=== PATIENT | female | born 1990 | race Caucasian/White ===

== ENCOUNTER 2020-02-21 15:09 | Emergency (ER) | payer BC ==
[~2020-02-21] VITALS: Ht 170.2 cm; Wt 68.0 kg
[2020-02-21 15:12] VITALS: BP 117/81
[2020-02-21] MEDS ORDERED: HYDR-4383 PO (15:33)
[2020-02-21] MEDS ORDERED: NAPR-56 PO (15:33)
[2020-02-21] MEDS ORDERED: PENI250T2 PO (15:33)
== END 2020-02-21 15:50 | disposition home or self-care (01) ==
LOC: ER 15:10
DX: K01.1 Impacted teeth (principal); F17.200 Nicotine dependence, unspecified, uncomplicated; Z79.899 Other long term (current) drug therapy
CPT/HCPCS: 99283

== ENCOUNTER 2020-09-22 10:33 | Emergency (ER) | payer BC, MEDICAID ==
[~2020-09-22] VITALS: Ht 170.2 cm; Wt 68.2 kg
[~2020-09-22 10:33] MED LIST: HYDR-4383 PO
[2020-09-22 11:06] LABS: CLARITY,URINE CLEAR (Clear); COLOR,URINE YELLOW (Yellow); GLUCOSE, URINE NEGATIVE (Neg); KETONES,URINE NEGATIVE (Neg); LEUKOCYTE ESTERASE ,URINE NEGATIVE (Neg); NITRITES, URINE NEGATIVE (Neg); OCCULT BLOOD,URINE SMALL (Neg); PROTEIN,URINE NEGATIVE (Neg); UROBILINOGEN,URINE 0.2 E.U/dL (0.2-1.0)
[2020-09-22 11:07] LABS: URINE HCG NEGATIVE (NEG)
[2020-09-22 11:12] LABS: UA COLLECTION TYPE CLN CATCH MIDSTREAM
[2020-09-22 11:14] LABS: BACTERIA,URINE 3+ /HPF (Neg); MUCUS STRANDS MODERATE /LPF (Neg); SQUAMOUS EPITHELIAL CELL,UR MANY /LPF (FEW); WBC,URINE 0-4 /HPF (0-4)
[2020-09-22 11:53] LABS: BASOPHILS % (AUTO) 0.6 % (0-1); MEAN CORPUSCULAR VOLUME 89.3 FL (78-98); MONOCYTES # (AUTO) 0.4 X10'3 (0-0.9); MONOCYTES % (AUTO) 8.1 % (2-12); NEUTROPHILS # (AUTO) 3.3 X10'3 (1.8-7.7); PLATELET COUNT 341 X10'3 (140-440); RED CELL DISTRIBUTION WIDTH 13.6 % (11.5-14.5); WHITE BLOOD COUNT 5.1 X10'3 (4.5-11.0)
[2020-09-22 11:55] LABS: EOSINOPHILS # (AUTO) 0.1 X10'3 (0-0.9); EOSINOPHILS % (AUTO) 1.3 % (0-6); HEMATOCRIT 45.1 % (35.0-45.0); HEMOGLOBIN 15.6 g/dl (12.0-16.0); LYMPHOCYTES # (AUTO) 1.2 X10'3 (1.1-4.8); LYMPHOCYTES % (AUTO) 24.3 % (21-51); MEAN CORPUSCULAR HEMOGLOBIN 30.8 PG (27.0-31.0); MEAN CORPUSCULAR HGB CONC 34.5 g/dL (33.0-36.5); MEAN PLATELET VOLUME 7.9 FL (7.4-10.4); NEUTROPHILS % (AUTO) 65.7 % (42-75); RED BLOOD COUNT 5.05 X10'6 (4.20-5.60)
[2020-09-22 12:06] LABS: ALANINE AMINOTRANSFERASE 29 U/L (12-78); ALBUMIN 4.3 G/DL (3.4-5.0); ALBUMIN/GLOBULIN RATIO 1.2 (1.1-1.5); ALKALINE PHOSPHATASE 52 IU/L (46-116); ANION GAP 9 (8-16); ASPARTATE AMINO TRANSFERASE 17 U/L (10-37); BILIRUBIN,TOTAL 1.6 MG/DL (0.1-1.0); BLOOD UREA NITROGEN 11 MG/DL (7-18); BUN/CREATININE RATIO 16.9 (6.6-38.0); CALCIUM 8.8 MG/DL (8.5-10.1); CHLORIDE 104 MMOL/L (99-107); CREATININE 0.65 MG/DL (0.40-0.90); GLUCOSE 94 MG/DL (70-104); LIPASE 122 U/L (73-393); POTASSIUM 3.8 MMOL/L (3.5-5.1); SODIUM 141 MMOL/L (135-145); TOTAL PROTEIN 7.8 G/DL (6.4-8.2); eGFR > 90 ML/MIN
[2020-09-22] MEDS ORDERED: ketorolac trometh. 30mg/ml inj. IV ONE (12:15)
[2020-09-22] MEDS ORDERED: HYDROmorphone inj. 0.5 MG/0.5 ML DISP.SYRIN IV PRN (12:15)
[2020-09-22] MEDS ORDERED: ondansetron/PF 4mg/2ml inj IV ONE (12:15)
[2020-09-22] MEDS ORDERED: normal saline 1000ML IV soln IVB ONE (12:15)
[2020-09-22] MEDS ORDERED: HYDROmorphone 1 mg/ml syringe IV PRN (12:16)
[2020-09-22] MEDS ORDERED: HYDR-3964 PO (13:02)
[2020-09-22] MEDS ORDERED: FLO0.4C PO (13:02)
[2020-09-22] MEDS ORDERED: KETO10TA2 PO (13:02)
[2020-09-22] MEDS ORDERED: OXYB5TAB16 PO (13:02)
[2020-09-22] MEDS ORDERED: PHEN-824 PO (13:02)
[2020-09-22] MEDS ORDERED: DIAZ5TAB PO (13:02)
[2020-09-22] MEDS ORDERED: ONDA4TAB6 PO (13:02)
[2020-09-22 14:07] VITALS: BP 117/76
== END 2020-09-22 14:10 | disposition home or self-care (01) ==
LOC: ER 10:34
DX: Z79.899 Other long term (current) drug therapy (principal); N20.0 Calculus of kidney
CPT/HCPCS: 36415; 74176; 80053; 81001; 81025; 83690; 85025; 96361; 96374; 96375; 99284; J1170; J1885; J2405; J7030

== ENCOUNTER 2023-10-03 16:44 | Emergency (ER) | payer MEDICAID, OTHER ==
[~2023-10-03] VITALS: Ht 170.2 cm; Wt 65.9 kg
[~2023-10-03 16:44] MED LIST changes: +DIAZ5TAB PO; +GABA300C PO; +KETO10TA2 PO; +ONDA4TAB6 PO; +OXYB5TAB21 PO; +PHEN-824 PO
[2023-10-03] MEDS ORDERED: CLIN-197 PO (17:52)
[2023-10-03] MEDS ORDERED: BENZ9GEL TOP (17:52)
[2023-10-03] MEDS ORDERED: IBUP-1985 PO (17:52)
[2023-10-03] MEDS ORDERED: ACET-3068 PO (17:52)
[2023-10-03] MEDS: HYDROcodone/acetaminophen 5mg/325mg tablet PO ONE (18:46)
[2023-10-03 18:50] VITALS: BP 113/80; PULSE 80; RESP 16; TEMP 98.7; O2SAT 98
== END 2023-10-03 18:45 | disposition home or self-care (01) ==
LOC: ER 16:44
DX: K05.30 Chronic periodontitis, unspecified (principal); Z88.8 Allergy status to other drugs, medicaments and biological substances; Z79.899 Other long term (current) drug therapy; Z79.2 Long term (current) use of antibiotics
CPT/HCPCS: 99283

== ENCOUNTER 2024-01-29 15:44 | Emergency (ER) | payer MEDICAID, OTHER ==
[~2024-01-29] VITALS: Ht 170.2 cm; Wt 64.5 kg
[~2024-01-29 15:44] MED LIST changes: +BENZ9GEL TOP; +IBUP-1985 PO
[2024-01-29 15:55] VITALS: BP 124/82; PULSE 103; RESP 16; O2SAT 94
[2024-01-29] MEDS ORDERED: BETA15CR40 TOP (16:16)
[2024-01-29 16:36] VITALS: TEMP 98.7
== END 2024-01-29 16:38 | disposition home or self-care (01) ==
LOC: ER 15:45
DX: L30.9 Dermatitis, unspecified (principal); Z88.8 Allergy status to other drugs, medicaments and biological substances; Z79.899 Other long term (current) drug therapy; Z79.1 Long term (current) use of non-steroidal anti-inflammatories (NSAID)
CPT/HCPCS: 99283